=== PATIENT | female | born 1965 | race Caucasian/White ===

== ENCOUNTER 2017-12-20 06:02 | Day surgery (SDC) | payer BC ==
[~2017-12-20 06:02] MED LIST: Lactated Ringers 1,000 ML IV SCH
[2017-12-20] MEDS ORDERED: DIPRIVAN 200 MG/20 ML IV ONE (06:03)
[2017-12-20] MEDS ORDERED: Ketamine HCl 50 MG/ML IV ONE (06:03)
[2017-12-20 08:45] VITALS: O2SAT 95
[2017-12-20 09:17] VITALS: PULSE 73
[2017-12-20 09:20] VITALS: BP 104/64
--- NOTE | 2017-12-20 12:33 | OP ---
SURGERY DATE/TIME: 01/17/2018 0723 PREOPERATIVE DIAGNOSES: 1) Chronic constipation. 2) Family history of colon cancer. POSTOPERATIVE DIAGNOSIS: Mild nonspecific inflammation of the cecum. PROCEDURE: Colonoscopy. SURGEON: Collins Judd M.D. ANESTHESIA: MAC by Fercho Herrera CRNA. ESTIMATED BLOOD LOSS: None. SPECIMENS: One cold forceps biopsy taken from the cecum. DESCRIPTION OF PROCEDURE: After informed written consent was obtained, the patient was taken to the endoscopy suite. She underwent monitored anesthesia and a digital rectal exam showed normal sphincter tone and no internal lesions. The scope was inserted into the rectum and sequentially the entire colonic mucosa was traversed. The level of cecum was reached and verified with direct visualization of ileocecal valve. There was some circumferential irritation with some mild stippling appearance in the area of the ileocecal valve. Cold forceps biopsy was taken from this area and sent for pathology testing. Blood loss was minimal. Upon further withdrawal there were no obvious abnormalities. Prep was noted to be fair. Prior to withdrawal retroflexion was performed and showed no internal lesions.
== END 2017-12-20 09:15 | disposition home or self-care (01) ==
LOC: SDC 06:02
PROVIDERS: ATTEND Family Medicine
PROC: 0DBH8ZX Excision of Cecum, Via Natural or Artificial Opening Endoscopic, Diagnostic (ICD-10-PCS; principal; 2017-12-20)
DX: K63.89 Other specified diseases of intestine (principal); K59.09 Other constipation; Z80.0 Family history of malignant neoplasm of digestive organs
CPT/HCPCS: 00812; 88305; J2704

== ENCOUNTER 2020-07-08 09:39 | Day surgery (SDC) | payer OTHER ==
[~2020-07-08 09:39] MED LIST changes: +DIPRIVAN 200 MG/20 ML IV ONE; +Ketamine HCl 50 MG/ML ONE; -Lactated Ringers 1,000 ML IV SCH
[2020-07-08] MEDS ORDERED: BUPIVACAINE 0.5% VIAL IJ ONE (09:40)
[2020-07-08] MEDS ORDERED: Depo-Medrol 40 MG/ML IM ONE (09:40)
--- NOTE | 2020-07-08 13:42 | XRAY ---
Indication: Left shoulder injection. Intraoperative fluoroscopy was provided for 19 seconds. Single digital spot image submitted for interpretation demonstrates needle tip projecting over the left glenohumeral joint superiorly. Small amount of contrast injected for needle tip placement. Correlate with intraoperative findings/report.
--- NOTE | 2020-07-08 14:06 | XRAY ---
19 seconds of fluoroscopy was used in surgery for a left intra-articular shoulder injection.
[2020-07-08] MEDS ORDERED: Lactated Ringers 1,000 ML IV ONE (15:50)
== END 2020-07-08 11:45 | disposition home or self-care (01) ==
LOC: SDC-PAIN 09:39
PROVIDERS: ATTEND Psychiatry & Neurology Pain Medicine
DX: M19.012 Primary osteoarthritis, left shoulder (principal); F41.8 Other specified anxiety disorders; G93.2 Benign intracranial hypertension; Z79.899 Other long term (current) drug therapy
CPT/HCPCS: 73030; 77002; 84703; J1030; J2704

== ENCOUNTER 2020-07-29 07:57 | Day surgery (SDC) | payer BC, OTHER ==
[2020-07-29] MEDS ORDERED: BUPIVACAINE 0.5% VIAL IJ ONE (07:58)
[2020-07-29] MEDS ORDERED: Depo-Medrol 40 MG/ML IM ONE (07:58)
--- NOTE | 2020-07-29 10:53 | XRAY ---
9 seconds fluoroscopy time in surgery intra-articular injection of the left shoulder.
--- NOTE | 2020-07-29 10:53 | XRAY ---
Indication: Left shoulder injection. Intraoperative fluoroscopy provided for 9 seconds. Single digital spot image submitted for interpretation demonstrates needle tip projecting over the left glenohumeral joint superiorly. Small amount of contrast injected for needle tip placement. Correlate with intraoperative findings/report.
[2020-07-29] MEDS ORDERED: Lactated Ringers 1,000 ML IV ONE (13:43)
== END 2020-07-29 09:55 | disposition home or self-care (01) ==
LOC: SDC-PAIN 07:57
PROVIDERS: ATTEND Psychiatry & Neurology Pain Medicine
DX: M25.512 Pain in left shoulder (principal); F41.8 Other specified anxiety disorders; Z79.899 Other long term (current) drug therapy; G93.2 Benign intracranial hypertension
CPT/HCPCS: 73030; 77002; 84703; J1030; J2704

== ENCOUNTER 2022-08-31 12:11 | Day surgery (SDC) | payer OTHER ==
[2022-08-31] MEDS ORDERED: LIDOCAINE HCL 2% 100 MG/5 ML IJ ONE (12:12)
--- NOTE | 2022-08-31 16:31 | XRAY ---
Indication: Bilateral T7-T9 MBB. Intraoperative fluoroscopy provided for 21 seconds. Single digital spot image submitted for interpretation demonstrates posterior needle tips projecting over the expected left and right T7-T9 nerve roots. Correlate with intraoperative findings/report.
[2022-08-31] MEDS ORDERED: Lactated Ringers 1,000 ML IV ONE (16:43)
--- NOTE | 2022-08-31 16:44 | XRAY ---
21 seconds of fluoroscopy was used in surgery for a bilateral T7-T9 MBB.
== END 2022-08-31 15:14 | disposition home or self-care (01) ==
LOC: SDC-PAIN 12:11
PROVIDERS: ATTEND Psychiatry & Neurology Pain Medicine
DX: M47.814 Spondylosis without myelopathy or radiculopathy, thoracic region (principal); Z79.899 Other long term (current) drug therapy
CPT/HCPCS: 64490; 64491; 72020; 77002

== ENCOUNTER 2022-10-12 12:25 | Day surgery (SDC) | payer OTHER ==
[2022-10-12] MEDS ORDERED: BUPIVACAINE 0.5% VIAL IJ ONE (12:26)
--- NOTE | 2022-10-12 14:45 | XRAY ---
Indication: Bilateral T7-T9 MBB. Intraoperative fluoroscopy provided for 38 seconds. 4 digital spot image submitted for interpretation demonstrates posterior needle tips projecting over the expected left and right T7-T9 nerve roots. Correlate with intraoperative findings/report.
--- NOTE | 2022-10-12 15:15 | XRAY ---
38 seconds of fluoroscopy was used in surgery for a bilateral T7-T9 MBB.
[2022-10-12] MEDS ORDERED: Lactated Ringers 1,000 ML IV ONE (15:18)
== END 2022-10-12 14:05 | disposition home or self-care (01) ==
LOC: SDC-PAIN 12:25
PROVIDERS: ATTEND Psychiatry & Neurology Pain Medicine
DX: M47.814 Spondylosis without myelopathy or radiculopathy, thoracic region (principal); Z79.899 Other long term (current) drug therapy
CPT/HCPCS: 64490; 64491; 72072; 77002

== ENCOUNTER 2022-11-02 08:24 | Day surgery (SDC) | payer OTHER ==
[2022-11-02] MEDS ORDERED: BUPIVACAINE 0.5% VIAL IJ ONE (08:25)
[2022-11-02] MEDS ORDERED: Depo-Medrol 40 MG/ML IM ONE (08:25)
[2022-11-02] MEDS ORDERED: LIDOCAINE HCL 1% 50 MG/5 ML VL PF IJ ONE (08:25)
[2022-11-02] MEDS ORDERED: DIPRIVAN 200 MG/20 ML IV ONE (10:10)
--- NOTE | 2022-11-02 11:30 | XRAY ---
Indication: Right T7-T9 RFA. Intraoperative fluoroscopy provided for 18 seconds. 2 digital spot image submitted for interpretation demonstrates posterior needle tips projecting over the expected right T7-T9 nerve roots. Correlate with intraoperative findings/report.
[2022-11-02] MEDS ORDERED: Lactated Ringers 1,000 ML IV ONE (11:35)
--- NOTE | 2022-11-02 12:25 | XRAY ---
18 seconds of fluoroscopy was used in surgery for a right T7-T9 RFA.
== END 2022-11-02 10:40 | disposition home or self-care (01) ==
LOC: SDC-PAIN 08:24
PROVIDERS: ATTEND Psychiatry & Neurology Pain Medicine
DX: M47.816 Spondylosis without myelopathy or radiculopathy, lumbar region (principal); Z79.899 Other long term (current) drug therapy
CPT/HCPCS: 64633; 64634; 72072; 77002; 82947; J1030; J2001; J2704

== ENCOUNTER 2022-11-09 08:27 | Day surgery (SDC) | payer OTHER ==
[2022-11-09] MEDS ORDERED: Depo-Medrol 40 MG/ML IM ONE (08:28)
[2022-11-09] MEDS ORDERED: LIDOCAINE HCL 1% 50 MG/5 ML VL PF IJ ONE (08:28)
[2022-11-09] MEDS ORDERED: BUPIVACAINE 0.5% VIAL IJ ONE (08:28)
[2022-11-09] MEDS ORDERED: DIPRIVAN 200 MG/20 ML IV ONE (09:53)
--- NOTE | 2022-11-09 11:36 | XRAY ---
Indication: Left T7-T9 RFA. Intraoperative fluoroscopy provided for 19 seconds. Single digital spot image submitted for interpretation demonstrates posterior needle tips projecting over the expected left T7-T9 nerve roots. Correlate with intraoperative findings/report.
--- NOTE | 2022-11-09 11:47 | XRAY ---
19 seconds of fluoroscopy was used in surgery for a left T7-T9 RFA.
[2022-11-09] MEDS ORDERED: Lactated Ringers 1,000 ML IV ONE (13:11)
== END 2022-11-09 10:30 | disposition home or self-care (01) ==
LOC: SDC-PAIN 08:27
PROVIDERS: ATTEND Psychiatry & Neurology Pain Medicine
DX: M47.814 Spondylosis without myelopathy or radiculopathy, thoracic region (principal); Z79.899 Other long term (current) drug therapy
CPT/HCPCS: 64490; 64491; 72072; 77002; J1030; J2001; J2704

== ENCOUNTER 2023-02-08 12:16 | Day surgery (SDC) | payer OTHER ==
[2023-02-08] MEDS ORDERED: LIDOCAINE HCL 2% 100 MG/5 ML IJ ONE (12:17)
[2023-02-08] MEDS ORDERED: DIPRIVAN 200 MG/20 ML IV ONE (13:59)
[2023-02-08] MEDS ORDERED: Lactated Ringers 1,000 ML IV ONE (14:23)
--- NOTE | 2023-02-08 15:22 | XRAY ---
Indication: Bilateral L1-L3 MBB. Intraoperative fluoroscopy provided for 14 seconds. Single digital spot image submitted for interpretation demonstrates posterior needle tips projecting over the expected left and right L1-L3 nerve roots. Correlate with intraoperative findings/report.
--- NOTE | 2023-02-08 16:43 | XRAY ---
14 seconds of fluoroscopy was used in surgery for a bilateral L1-L3 MBB.
== END 2023-02-08 14:30 | disposition home or self-care (01) ==
LOC: SDC-PAIN 12:16
PROVIDERS: ATTEND Psychiatry & Neurology Pain Medicine
DX: M47.816 Spondylosis without myelopathy or radiculopathy, lumbar region (principal); Z79.899 Other long term (current) drug therapy
CPT/HCPCS: 64493; 64494; 72020; 77002; J2704

== ENCOUNTER 2023-03-15 06:56 | Day surgery (SDC) | payer OTHER ==
[2023-03-15] MEDS ORDERED: Depo-Medrol 40 MG/ML IM ONE (06:57)
[2023-03-15] MEDS ORDERED: BUPIVACAINE 0.5% VIAL IJ ONE (06:57)
[2023-03-15] MEDS ORDERED: DIPRIVAN 200 MG/20 ML IV ONE (08:12)
--- NOTE | 2023-03-15 09:37 | XRAY ---
Indication: Bilateral L1-L3 MBB. Intraoperative fluoroscopy provided for 17 seconds. Single digital spot image submitted for interpretation demonstrates posterior needle tips projecting over the expected left and right L1-L3 nerve roots. Correlate with intraoperative findings/report.
[2023-03-15] MEDS ORDERED: Lactated Ringers 1,000 ML IV ONE (14:42)
== END 2023-03-15 08:40 | disposition home or self-care (01) ==
LOC: SDC-PAIN 06:56
PROVIDERS: ATTEND Psychiatry & Neurology Pain Medicine
DX: M47.816 Spondylosis without myelopathy or radiculopathy, lumbar region (principal); Z79.899 Other long term (current) drug therapy
CPT/HCPCS: 64493; 64494; 72020; 77002; J1030; J2704

== ENCOUNTER 2023-04-19 13:47 | Day surgery (SDC) | payer OTHER ==
[2023-04-19] MEDS ORDERED: BUPIVACAINE 0.5% VIAL IJ ONE (13:48)
[2023-04-19] MEDS ORDERED: LIDOCAINE HCL 1% 50 MG/5 ML VL PF IJ ONE (13:48)
[2023-04-19] MEDS ORDERED: Depo-Medrol 40 MG/ML IM ONE (13:48)
[2023-04-19] MEDS ORDERED: DIPRIVAN 200 MG/20 ML IV ONE (15:11)
[2023-04-19] MEDS ORDERED: Lactated Ringers 1,000 ML IV ONE (15:45)
--- NOTE | 2023-04-19 16:35 | XRAY ---
Indication: Right L1-L3 RFA. Intraoperative fluoroscopy provided for 20 seconds. 4 digital spot image submitted for interpretation demonstrates posterior needle tips projecting over the expected right L1-L3 nerve roots. Correlate with intraoperative findings/report.
--- NOTE | 2023-04-19 16:41 | XRAY ---
20 seconds of fluoroscopy was used in surgery for a right L1-L3 RFA.
== END 2023-04-19 15:40 | disposition home or self-care (01) ==
LOC: SDC-PAIN 13:47
PROVIDERS: ATTEND Psychiatry & Neurology Pain Medicine
DX: M47.816 Spondylosis without myelopathy or radiculopathy, lumbar region (principal); Z79.899 Other long term (current) drug therapy
CPT/HCPCS: 64635; 64636; 72100; 77002; J1030; J2001; J2704

== ENCOUNTER 2023-04-26 09:14 | Day surgery (SDC) | payer OTHER ==
[2023-04-26] MEDS ORDERED: LIDOCAINE HCL 1% 50 MG/5 ML VL PF IJ ONE (09:15)
[2023-04-26] MEDS ORDERED: Depo-Medrol 40 MG/ML IM ONE (09:15)
[2023-04-26] MEDS ORDERED: BUPIVACAINE 0.5% VIAL IJ ONE (09:15)
[2023-04-26] MEDS ORDERED: DIPRIVAN 200 MG/20 ML IV ONE ×2 (11:59→12:05)
--- NOTE | 2023-04-26 13:45 | XRAY ---
Indication: Left L1-L3 RFA. Intraoperative fluoroscopy provided for 28 seconds. 4 digital spot image submitted for interpretation demonstrates posterior needle tips projecting over the expected left L1-L3 nerve roots. Correlate with intraoperative findings/report.
[2023-04-26] MEDS ORDERED: Lactated Ringers 1,000 ML IV ONE (14:36)
--- NOTE | 2023-04-26 15:13 | XRAY ---
28 seconds of fluoroscopy was used in surgery for a left L1-L3 RFA.
== END 2023-04-26 12:35 | disposition home or self-care (01) ==
LOC: SDC-PAIN 09:14
PROVIDERS: ATTEND Psychiatry & Neurology Pain Medicine
DX: M47.816 Spondylosis without myelopathy or radiculopathy, lumbar region (principal); Z79.899 Other long term (current) drug therapy
CPT/HCPCS: 64635; 64636; 72100; 77002; J1030; J2001; J2704

== ENCOUNTER 2023-08-30 14:16 | Day surgery (SDC) | payer OTHER ==
[2023-08-30] MEDS ORDERED: LIDOCAINE HCL 2% 100 MG/5 ML IJ ONE (14:17)
[2023-08-30] MEDS ORDERED: DIPRIVAN 200 MG/20 ML IV ONE (17:30)
[2023-08-30] MEDS ORDERED: Versed 2 MG/2 ML Injection ONE (17:36)
[2023-08-30] MEDS ORDERED: Lactated Ringers 1,000 ML IV ONE (19:06)
--- NOTE | 2023-08-30 20:55 | XRAY ---
Indication: Bilateral T9-T11 MBB. Intraoperative fluoroscopy provided for 19 seconds. 2 digital spot image submitted for interpretation demonstrates posterior needle tips projecting over the expected left and right T9-T11 nerve roots. Correlate with intraoperative findings/report.
--- NOTE | 2023-08-30 20:59 | XRAY ---
19 seconds of fluoroscopy was used in surgery for a bilateral T9-T11 MBB.
== END 2023-08-30 18:01 | disposition home or self-care (01) ==
LOC: SDC-PAIN 14:16
PROVIDERS: ATTEND Psychiatry & Neurology Pain Medicine
DX: M47.814 Spondylosis without myelopathy or radiculopathy, thoracic region (principal); Z79.899 Other long term (current) drug therapy
CPT/HCPCS: 64490; 64491; 72020; 77002; J2250; J2704

== ENCOUNTER → 2023-10-11 | Day surgery (SDC) | payer OTHER ==
[~2023-10-11] MED LIST changes: +BUPIVACAINE 0.5% VIAL IJ ONE; -Ketamine HCl 50 MG/ML ONE; +Lactated Ringers 1,000 ML IV ONE
--- NOTE | 2023-10-11 13:59 | XRAY ---
Indication: Bilateral T9-T11 MBB. Intraoperative fluoroscopy provided for 24 seconds. 2 digital spot images submitted for interpretation demonstrates posterior needle tips projecting over the expected left and right T9-T11 nerve roots. Correlate with intraoperative findings/report.
--- NOTE | 2023-10-11 16:56 | XRAY ---
24 seconds of fluoroscopy was used in surgery for a bilateral T9-T11 MBB.
== END ==
LOC: SDC-PAIN 11:35
PROVIDERS: ATTEND Psychiatry & Neurology Pain Medicine
DX: M47.814 Spondylosis without myelopathy or radiculopathy, thoracic region (principal)
CPT/HCPCS: 64490; 64491; 72020; 77002; J2704

== ENCOUNTER 2023-11-29 13:08 | Day surgery (SDC) | payer MEDICARE, OTHER ==
[2023-11-29] MEDS ORDERED: BUPIVACAINE 0.5% VIAL IJ ONE (13:09)
[2023-11-29] MEDS ORDERED: Depo-Medrol 40 MG/ML IM ONE (13:09)
[2023-11-29] MEDS ORDERED: XYLOCAINE-MPF 1% 5ML SDV IJ ONE (13:09)
[2023-11-29] MEDS ORDERED: DIPRIVAN 200 MG/20 ML IV ONE ×2 (15:28→15:39)
[2023-11-29] MEDS ORDERED: Lactated Ringers 1,000 ML IV ONE (15:35)
--- NOTE | 2023-11-29 17:05 | XRAY ---
Indication: Left T9-T11 RFA. Intraoperative fluoroscopy provided for 23 seconds. 2 digital spot images submitted for interpretation demonstrates posterior needle tips projecting over the presumed left T9-T11 nerve roots. Correlate with intraoperative findings/report.
--- NOTE | 2023-11-29 17:41 | XRAY ---
23 seconds of fluoroscopy was used in surgery for a left T9-T11 RFA.
== END 2023-11-29 16:07 | disposition home or self-care (01) ==
LOC: SDC-PAIN 13:08
PROVIDERS: ATTEND Psychiatry & Neurology Pain Medicine
DX: M47.816 Spondylosis without myelopathy or radiculopathy, lumbar region (principal)
CPT/HCPCS: 64633; 64634; 72072; 77002; J1030; J2704

== ENCOUNTER 2023-12-06 11:02 | Day surgery (SDC) | payer MEDICARE, OTHER ==
[2023-12-06] MEDS ORDERED: XYLOCAINE-MPF 1% 5ML SDV IJ ONE (11:03)
[2023-12-06] MEDS ORDERED: Depo-Medrol 40 MG/ML IM ONE (11:03)
[2023-12-06] MEDS ORDERED: BUPIVACAINE 0.5% VIAL IJ ONE (11:03)
[2023-12-06] MEDS ORDERED: DIPRIVAN 200 MG/20 ML IV ONE (12:44)
[2023-12-06] MEDS ORDERED: Lactated Ringers 1,000 ML IV ONE (13:56)
--- NOTE | 2023-12-06 14:10 | XRAY ---
Indication: Right T9-T11 RFA. Intraoperative fluoroscopy provided for 29 seconds. 4 digital spot images submitted for interpretation demonstrates posterior needle tips projecting over the expected right T9-T11 nerve roots. Correlate with intraoperative findings/report.
--- NOTE | 2023-12-06 14:35 | XRAY ---
29 seconds of fluoroscopy was used in surgery for a right T9-T11 RFA.
== END 2023-12-06 13:20 | disposition home or self-care (01) ==
LOC: SDC-PAIN 11:02
PROVIDERS: ATTEND Psychiatry & Neurology Pain Medicine
DX: M47.816 Spondylosis without myelopathy or radiculopathy, lumbar region (principal)
CPT/HCPCS: 64633; 64634; 72072; 77002; J1030; J2704

== ENCOUNTER 2024-01-24 05:56 | Day surgery (SDC) | payer MEDICARE, OTHER ==
[2024-01-24 06:23] VITALS: RESP 18
[2024-01-24] MEDS: Lactated Ringers 1,000 ML IV SCH (06:43)
[2024-01-24] MEDS: Zofran 4 MG/2 ML VIAL IV STA (07:33)
[2024-01-24] MEDS: OFIRMEV 1,000 MG/100 ML ML IV ONE (07:34)
[2024-01-24] MEDS ORDERED: DIPRIVAN 200 MG/20 ML IV ONE ×2 (07:57→08:15)
--- NOTE | 2024-01-24 08:49 | OP ---
SURGERY DATE/TIME: 01/24/2024 0834 PREOPERATIVE DIAGNOSIS: Screening colonoscopy. POSTOPERATIVE DIAGNOSIS: Normal colon. PROCEDURE: Colonoscopy. SURGEON: Collins Judd M.D. ANESTHESIA: MAC by Balaji Jolly CRNA. ESTIMATED BLOOD LOSS: None. SPECIMENS: None. DESCRIPTION OF PROCEDURE: After informed written consent was obtained, the patient was taken to the endoscopy suite. Anesthesia was titrated to the desired level of consciousness. Digital rectal exam showed normal sphincter tone and no internal lesions. The scope was inserted into the rectum and sequentially the entire colonic mucosa was traversed. The level of cecum was reached and verified with direct visualization of the ileocecal valve. Upon withdrawal careful mucosal inspection revealed no gross mucosal abnormalities. Prep was noted to be good. Prior to withdrawal, retroflexion showed no internal lesions. The scope was removed. The patient was transferred to the recovery room in good condition. She has been advised routine ten year follow up with normal screening colonoscopy unless symptoms or history warrants earlier investigation.
[2024-01-24 09:05] VITALS: TEMP 96.4; O2SAT 95
[2024-01-24 09:20] VITALS: BP 108/66; PULSE 66
== END 2024-01-24 09:22 | disposition home or self-care (01) ==
LOC: SDC 05:56
PROVIDERS: ATTEND Family Medicine
DX: Z12.11 Encounter for screening for malignant neoplasm of colon (principal)
CPT/HCPCS: J2405; J2704

== ENCOUNTER 2024-11-13 11:30 | Day surgery (SDC) | payer MEDICARE ==
[2024-11-13] MEDS ORDERED: Sodium Chloride 0.9(Preservative Free) 10 ML IJ ONE (11:31)
[2024-11-13] MEDS ORDERED: dexAMETHasone sodium phosphate IJ ONE (11:31)
[2024-11-13] MEDS ORDERED: propofoL IV ONE (13:15)
--- NOTE | 2024-11-13 14:57 | XRAY ---
Indication: Left L4-S1 transforaminal BEVERLEY. Intraoperative fluoroscopy provided for 45 seconds. 8 digital spot images submitted for interpretation demonstrates posterior needle tips projecting over expect the left L4 and L5 nerve roots. Small amount of contrast injected for needle tip placement. Correlate with intraoperative findings/report.
--- NOTE | 2024-11-13 14:59 | XRAY ---
45 seconds of fluoroscopy was used in surgery for a left L4-S1 transforaminal BEVERLEY.
== END 2024-11-13 13:02 | disposition home or self-care (01) ==
LOC: SDC-PAIN 11:30
PROVIDERS: ATTEND Psychiatry & Neurology Pain Medicine
DX: M54.16 Radiculopathy, lumbar region (principal)
CPT/HCPCS: 64483; 64484; 72100; 77003; J1100; J2704; Q9966

== ENCOUNTER 2024-12-05 13:14 | Day surgery (SDC) | payer MEDICARE ==
[2024-12-05] MEDS ORDERED: Depo-Medrol 40 MG/ML IM ONE (13:15)
[2024-12-05] MEDS ORDERED: LIDOCAINE HCL 1% AMPUL 5 ML IJ ONE (13:15)
[2024-12-05] MEDS ORDERED: BUPIVACAINE 0.5% VIAL IJ ONE (13:15)
[2024-12-05] MEDS ORDERED: Lactated Ringers 500 ML IV ONE (13:44)
[2024-12-05] MEDS ORDERED: propofoL IV ONE ×2 (15:09→15:17)
--- NOTE | 2024-12-05 16:34 | XRAY ---
Indication: Right L1-L3 RFA. Intraoperative fluoroscopy provided for 19 seconds. 3 digital spot images submitted for interpretation demonstrates posterior needle tips projecting over expected right L1-L3 nerve roots. Correlate with intraoperative findings/report.
--- NOTE | 2024-12-05 16:38 | XRAY ---
19 seconds of fluoroscopy was used in surgery for a right L1-L3 RFA.
== END 2024-12-05 15:44 | disposition home or self-care (01) ==
LOC: SDC-PAIN 13:14
PROVIDERS: ATTEND Psychiatry & Neurology Pain Medicine
DX: M47.816 Spondylosis without myelopathy or radiculopathy, lumbar region (principal)
CPT/HCPCS: 64635; 64636; 72100; 77002; J2704

== ENCOUNTER 2024-12-18 11:50 | Day surgery (SDC) | payer MEDICARE ==
[2024-12-18] MEDS ORDERED: methylPREDNISolone acetate IM ONE (11:51)
[2024-12-18] MEDS ORDERED: LIDOCAINE HCL 1% 50 MG/5 ML VL IJ ONE (11:51)
[2024-12-18] MEDS ORDERED: BUPIVACAINE 0.5% VIAL IJ ONE (11:51)
[2024-12-18] MEDS ORDERED: Lactated Ringers 500 ML IV ONE (11:55)
[2024-12-18] MEDS ORDERED: propofoL IV ONE (13:05)
--- NOTE | 2024-12-18 14:33 | XRAY ---
Indication: Left L1-L3 RFA. Intraoperative fluoroscopy provided for 25 seconds. 4 digital spot image submitted for interpretation demonstrates posterior needle tips projecting over expected left L1-L3 nerve roots. Correlate with intraoperative findings/report.
--- NOTE | 2024-12-18 15:20 | XRAY ---
25 seconds of fluoroscopy was used in surgery for a left L1-L3 RFA.
== END 2024-12-18 13:40 | disposition home or self-care (01) ==
LOC: SDC-PAIN 11:50
PROVIDERS: ATTEND Psychiatry & Neurology Pain Medicine
DX: M47.816 Spondylosis without myelopathy or radiculopathy, lumbar region (principal)
CPT/HCPCS: 64635; 64636; 72100; 77002; J1010; J2704